=== PATIENT | male | born 1935 | race Caucasian/White ===

== ENCOUNTER 2018-12-26 12:00 | Inpatient (IN) | payer OTHER ==
[2018-12-26] MEDS ORDERED: SODIUM CHLORIDE 0.9% (FLUSH) 10 ML SYG IV PRN (12:17)
[2018-12-26] MEDS ORDERED: ONDANSETRON INJ 4 MG/2 ML VIAL IV PRN (12:17)
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
[2018-12-26] MEDS ORDERED: KETOROLAC TROMETHAMINE INJ 30 MG/ML VIAL IV ONE (12:19)
[2018-12-26] MEDS ORDERED: HYDROmorphone HCL INJ 2 MG/ML VIAL IV ONE (12:19)
[2018-12-26] MEDS ORDERED: IV SET AND CAP CHANGE INJ INJ SCH (12:30)
[2018-12-26] MEDS: LACTATED RINGERS 1,000 ML IVS PRN ×2 (13:17→20:05)
--- NOTE | 2018-12-26 14:45 | US ---
EXAM DESCRIPTION: Abdomen,Complete: Ultrasound. CLINICAL HISTORY: Acute onset RUQ pain COMPARISON: None Available. TECHNIQUE: Transabdominal scannin-dimensional and Doppler modes. FINDINGS: Gallbladder: Normal. Multiple gallstones and sludge. No wall thickening (2.4 mm) or surrounding fluid. Nontender with transducer pressure. Common bile duct: 4 mm, normal caliber. Liver: Normal echoes with long axis of the right lobe 16 cm. No intrahepatic duct dilation. Normal vascular flow. Pancreas: Not well visualized. Duct not seen.. Abdominal aorta: Normal caliber from the proximal segment to the distal bifurcation. IVC: visualized; normal caliber. Spleen normal echogenicity; long axis measurement is 7.8 cm. Right kidney: Normal cortical echogenicity with lobulated capsule and thickness 7.1 mm. 10.2 cm Long axis. Mild hydronephrosis. No perinephric fluid. Left kidney: 12.0 cm long axis. Normal cortical echogenicity with thickness 11 mm. Lobulated capsule. Mild hydronephrosis. No perinephric fluid. IMPRESSION: 1. Gallbladder stones and sludge with gallbladder slightly contracted. No wall thickening or fluid. Nontender. Normal caliber of the common bile duct. 2. Normal ultrasound of the liver and spleen. Pancreas not well seen. No ascites. Normal caliber of the abdominal aorta and IVC. 3. Bilateral kidneys normal size with cortical thinning more on the right. Bilateral lobulated capsule. Mild hydronephrosis bilaterally. Electronically signed by: Levi Khan MD 12/26/2018 2:42 PM [facility]
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
[2018-12-27] MEDS: LACTATED RINGERS 1,000 ML IVS PRN ×2 (05:48→17:22)
[2018-12-27] MEDS ORDERED: fentaNYL CITRATE INJ 50 MCG/ML AMP ONE (09:30)
[2018-12-27] MEDS ORDERED: ROCURONIUM BROMIDE 10 MG/ML VIAL ONE (09:30)
[2018-12-27] MEDS ORDERED: SUGAMMADEX SODIUM 200 MG/2 ML VIAL IV ONE (09:31)
[2018-12-27] MEDS ORDERED: BUPIVACAINE 0.5% W/EPI 30 ML VIAL INJ ONE (09:38)
[2018-12-27] MEDS ORDERED: HEPARIN SODIUM (PORCINE) 10,000 UNITS/ML VIAL ONE (09:38)
[2018-12-27] MEDS ORDERED: BUPIVACAINE 0.25% W/EPI 50 ML VIAL INJ ONE (09:39)
--- NOTE | 2018-12-27 10:30 | RAD ---
EXAM DESCRIPTION: Chest,2 Views CLINICAL HISTORY: 83 years Male, pre op COMPARISON: None available. TECHNIQUE: PA and lateral radiographs of the chest were obtained. FINDINGS: Trachea is midline. The cardiac silhouette is mildly prominent in size. The pulmonary vasculature is within normal limits. The lungs demonstrate low volumes most likely secondary to poor inspiratory effort.No evidence of pleural effusions.No evidence of pneumothorax. IMPRESSION: Mildly prominent cardiac silhouette. Low lung volumes due to poor inspiratory effort. Electronically signed by: Merissa Vázquez MD 12/27/2018 10:27 AM [facility]
[2018-12-27] MEDS ORDERED: ceFAZolin SODIUM 1 GM VIAL IVPB ONE (11:00)
[2018-12-27] MEDS ORDERED: ELECTROLYTE-A 1,000 ML IVS ONE (11:25)
[2018-12-27] MEDS ORDERED: GLUCAGON INJ 1 MG VIAL ONE (11:37)
[2018-12-27] MEDS ORDERED: HYDROmorphone HCL INJ 2 MG/ML VIAL ONE (12:00)
--- NOTE | 2018-12-27 12:33 | RAD ---
EXAM DESCRIPTION: Fluoroscopy Up to 1Hr CLINICAL HISTORY: IOC IMPRESSION: 3 Fluoroscopic image/s were acquired by the referring physician intraoperatively. Normal filling of the biliary tree is seen. No complicating process is demonstrated. Please refer to surgical report for specific details. Fluoroscopy time less than 1 minute. Electronically signed by: Jamie Jefferson MD 12/27/2018 12:30 PM [facility]
[2018-12-27] MEDS ORDERED: HYDROcodone 5MG/APAP 325MG 1 EA TAB PO PRN (12:53)
[2018-12-27] MEDS ORDERED: HYDROmorphone HCL INJ 2 MG/ML VIAL IV PRN (12:53)
--- NOTE | 2018-12-27 13:29 | OP ---
DATE OF PROCEDURE: 12/27/18 PREOPERATIVE DIAGNOSIS: 1. Cholecystitis. 2. Cholelithiasis. POSTOPERATIVE DIAGNOSIS: 1. Acute gangrenous cholecystitis. 2. Cholelithiasis. 3. Possible choledocholithiasis. PROCEDURE: 1. Laparoscopic cholecystectomy with intraoperative cholangiography using fluoroscopy. SURGEON: Khari Fulton MD. LEATHER SEASONER: None. ANESTHESIA: Local infiltration of 0.25% Marcaine with epinephrine and general endotracheal anesthesia. INDICATION: The patient is an 83-year-old male who developed severe abdominal pain Sunday night after eating a heavy meal of chicken fried steak. He presented to the Emergency Room in [place] and was told he had probably gallbladder problems. He was given a shot for pain. He saw Dr. Craig yesterday who felt he had severe right upper quadrant pain consistent with cholecystitis. He was admitted to the hospitalist service. Ultrasound revealed gallstones and a thickened gallbladder wall. He had a normal white count. His liver functions show bilirubin mildly elevated. He was seen yesterday, made NPO and this morning, he was brought to the Surgical Suite after the risks, benefits and alternatives to the procedure were discussed and accepted. FINDINGS: The gallbladder wall was gangrenous, thickened and there was no perforation noted. Intraoperative cholangiography revealed a bile duct with no filling defects that were obvious or strictures and the upper biliary tree was normal, but there was no flow initially of bile into the duodenum. After glucagon, a small amount of bile got through. At this point, no other pathology was identified. DESCRIPTION OF PROCEDURE: After adequate general endotracheal anesthesia was obtained, the patient was prepped and draped in the usual sterile manner in the supine position. He was given 2 grams of Ancef. At this point, the supraumbilical area was infiltrated with local anesthesia. A vertical incision was made. Dissection was carried down through subcutaneous tissue to the midline fascia. Traction sutures were placed on either side of the midline. A small incision was made in the midline fascia and the peritoneum was opened bluntly. Rosaura trocar was introduced under direct vision into the abdominal cavity and fixed in place with the 20 mL balloon. CO2 was then insufflated until a pressure of 12 mmHg was reached and the abdomen was tympanitic in all four quadrants. When this was done, the laparoscope was introduced. The abdomen was inspected. The gallbladder was identified after some very loose adhesions were removed. It was noted to be distended and gangrenous. At this point, a Storz needle was introduced and 60 mL of dark bile was obtained. The gallbladder was then grasped, retracted superiorly and laterally. The neck of the gallbladder was retracted laterally. The triangle of Calot was then explored with the cystic duct and cystic artery identified. The cystic duct was hemoclipped once proximally. The cystic artery was hemoclipped twice proximally and once distally. A small incision was made in the cystic duct. The cholangiogram catheter was introduced through a separate stab wound in the right upper quadrant, introduced into the cystic duct and at first, it leaked significantly. The clip was then repositioned. Cholangiograms were attempted. There was still leakage, but we saw everything except flow into the duodenum, so it was clipped again and cholangiography revealed a small amount of flow into the duodenum with all otherwise no significant defects. The cystic duct catheter was removed. The cystic duct was hemoclipped three times distally and divided between the hemoclips. The cystic artery was divided. The gallbladder was then dissected free from the gallbladder bed with some oozing obtained. There was another vessel identified of the lower aspect and this was clipped and divided. There was some leakage of the gallbladder due to the gangrenous areas, so it was placed in an EndoCatch bag. Two stones were noted to be loose. These were removed under direct vision. When this was done, the subhepatic space and subphrenic space were irrigated copiously with saline. The effluent was noted to be clear. The gallbladder was placed in an EndoCatch bag and removed from the supraumbilical port site in the usual manner under direct vision. Again, the subphrenic space and subhepatic space were irrigated copiously with saline. There was no active bleeding identified. The reid hepatis revealed no bleeding or bile leak. At this point, a 15-T[place] MARY KATE drain was placed in the subhepatic space near the cystic duct remnant through the lateral port site. It was sutured in place with 3-0 Nylon ligature. The remaining upper ports were removed. Good hemostasis was noted. At this point, the CO2, the laparoscope and the supraumbilical port were removed. The supraumbilical port site fascia was approximated with a single [id number] suture of 0 Vicryl. Subcutaneous tissue was irrigated with saline. Skin edges were approximated with 4-0 Vicryl subcuticular sutures, benzoin and Steri-Strips. The MARY KATE drain was cut to appropriate length and placed to suction on a closed suction grenade. Sterile dressings were applied. The patient was awakened and taken to the Recovery Room in good and stable condition. Estimated blood loss was approximately 150 mL. All sponge, needle and instrument counts were correct. #[id number] MTDD
[2018-12-27] MEDS: PANTOPRAZOLE SODIUM IV 40 MG VIAL IV SCH (13:45)
--- NOTE | 2018-12-27 14:04 | PN ---
DATE: 12/27/18 SUBJECTIVE: The patient feels pretty well today, with very minimal right upper quadrant pain. He states he has not had a bowel movement that he remembers since admission. He is currently doing very well without complaints. He endorses that they plan on doing surgery to remove his gallbladder today. OBJECTIVE: VITAL SIGNS: Temperature 98.8. Pulse 76. Blood pressure 148/74. Respiratory rate 16. Oxygen saturation 90% on room air. GENERAL: In good spirits, conversing normally. CHEST: Lungs clear to auscultation, no wheezes or crackles. HEART: Normal rate and rhythm, no murmurs. ABDOMEN: Minimal right upper quadrant pain, no rebound or negative Gonzalez's, no ascites. EXTREMITIES: Mild pitting edema to bilateral lower extremities, no focal deficits. 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 LABORATORY: White blood cell count 6.1, hemoglobin 13.7, hematocrit 41.0. Sodium 141, potassium 3.8, chloride 109, carbon dioxide 25. BUN 18, creatinine 0.73. Total bilirubin elevated at 1.7. Liver enzymes within normal limits. Serum total protein slightly low at 5.7. Amylase 30, lipase 22. IMAGING: Preoperative chest x-ray, 12/27/18, shows mildly prominent cardiac silhouette, low lung volumes due to poor expiratory effort likely. ASSESSMENT: 1. Right upper quadrant pain, likely biliary colic with surgical consultation by Dr. Fulton in process to further rule out pancreatitis versus cholelithiasis and possible appendicitis, status post cholecystectomy with evidence of gangrenous gallbladder according to Dr. Fulton. 2. History of deep venous thrombosis with pulmonary embolus with IVC filter placement and on Xarelto. PLAN: The patient is postoperative 0 from a cholecystectomy in which Dr. Fulton endorses he found a gangrenous gallbladder. Dr. Fulton also endorsed that the bile duct did not drain appropriately, but there was no real sign of choledocholithiasis. Due to that, he left a drain in place and will reassess his labs and clinical status in the morning. If bilirubin goes up or labs are concerning, he will likely need an ERCP. If the patient looks well tomorrow, we can remove the drain and continue his Xarelto per Dr. Fulton. He will likely need an MRCP on an outpatient basis given the recent findings of the poorly draining common bile duct. We will give him a dose of Lovenox tomorrow per Dr. Fulton. He can continue his Xarelto tomorrow if we can pull the drain and be able to send him home. Continuing all medications that we have been doing thus far, we will monitor him postoperatively, and work alongside Dr. Fulton and his team. #[id number] MTDD
[2018-12-27] MEDS: ceFAZolin SODIUM 2 GRAMS PREMI 2 GM in PREMIX BAG 1 BAG IVPB SCH ×2 (16:22→23:46)
[2018-12-27] MEDS ORDERED: ceFAZolin SODIUM 2 GRAMS PREMI 50 ML IVPB ONE ×2 (17:04→22:53)
[2018-12-28] MEDS: LACTATED RINGERS 1,000 ML IVS PRN (04:59)
[2018-12-28] MEDS ORDERED: ceFAZolin SODIUM 2 GRAMS PREMI 50 ML IVPB ONE (07:07)
[2018-12-28] MEDS: ceFAZolin SODIUM 2 GRAMS PREMI 2 GM in PREMIX BAG 1 BAG IVPB SCH (08:32)
[2018-12-28] MEDS ORDERED: ENOXAPARIN SODIUM 40 MG/0.4 ML SYG SUBCU SCH (09:00)
[2018-12-28] MEDS ORDERED: DEXAMETHASONE INJ 10 MG/ML VIAL IV ONE (10:00)
[2018-12-28] MEDS ORDERED: raNITIdine HCL INJ 25 MG/ML VIAL IV ONE (10:00)
[2018-12-28] MEDS ORDERED: ceFAZolin SODIUM 1 GM VIAL IVPB ONE (10:00)
[2018-12-28] MEDS ORDERED: LIDOCAINE 1% 10 ML VIAL INJ ONE (10:00)
[2018-12-28] MEDS ORDERED: PROPOFOL 200 MG/20 ML VIAL IV ONE (10:00)
[2018-12-28] MEDS ORDERED: METOCLOPRAMIDE HCL INJ 10 MG/2 ML VIAL IV ONE (10:00)
[2018-12-28] MEDS: PANTOPRAZOLE SODIUM IV 40 MG VIAL IV SCH (12:38)
[2018-12-28 13:50] VITALS: BP 159/72; TEMP 98.4; O2SAT 95
--- NOTE | 2018-12-28 17:43 | DS ---
ADMISSION DIAGNOSIS: 1. Right upper quadrant pain, likely biliary colic with surgical consultation by Dr. Fulton in process to further rule out pancreatitis versus cholelithiasis and possible appendicitis. 2. History of DVT with pulmonary embolus with IVC filter placement and on Xarelto. HISTORY OF PRESENT ILLNESS: Mr. Constantino is an 83 year-old male patient that was seen last night in the Emergency Room at [facility] in [place] for a sudden onset of right upper quadrant pain around midnight. He notes that he had eaten a large chicken plaza dinner around 8 o'clock and started having severe sharp pain around his right upper quadrant that he was describing 10/10 on a pain scale. He was given pain medicine in the Emergency Room and told that he needed to have an ultrasound or CT done to further rule out the possibility of cholelithiasis and cholecystitis. However, he requested to be discharged so he could followup with Dr. Craig. Earlier today he was seen in Dr. Craig's office for followup from the Emergency Room. He was still having abdominal pain in the right upper quadrant. Dr. Craig then requested after talking to Dr. Fulton, that the the patient be admitted for questionable biliary colic versus cholelithiasis versus cholecystitis and further treatment and evaluation. He was directly admitted in stable condition. HOSPITAL COURSE: The patient was initially admitted in light of sudden onset of right upper quadrant pain with a steadily elevated total bilirubin level. Upon admission, the patient had an abdominal ultrasound which showed stones found in the gallbladder, along with a thickened gallbladder wall significant for likely cholecystitis. He was taken to the Operating Room on admission day 1, and found to have a gangrenous gallbladder. Per Dr. Fulton, the procedure went well and a drain was placed. Per Dr. Fulton, he did have a filling defect found in the common bile duct, thus a drain was left in place and labs were followed. On postoperative day 1, the patient had a relative decrease in total bilirubin, and a decrease in pain, and the drain was removed. Dr. Fulton agreed that he was stable for discharge with a close followup to schedule an MRCP to evaluate the draining of the common bile duct. VITAL SIGNS: Temperature 98.4, heart rate 82, blood pressure 159/72, respiratory rate 16, oxygen saturation 95 on room air. LABORATORY: White blood cell count normal throughout, hemoglobin stable in the high 13s, platelet count normal throughout the admission. Chemistry panel within normal limits, glucose slightly elevated at 137. Total bilirubin at 1.7 preoperative, 1.5 postoperative day 1. IMAGING: Abdominal ultrasound from 12/26/18 shows stones in the gallbladder, with thickened gallbladder wall. Chest x-ray 12/27/18 relatively normal with an IVC filter seen in the right lung damon. DISCHARGE DIAGNOSES: 1. Status post cholecystectomy in light of cholelithiasis and cholecystitis. 2. History of deep venous thrombosis with pulmonary embolus equal IVC filter placement, and subsequently on Xarelto. 3. Likely chronic hypertension, currently undiagnosed. 4. Obesity. 5. History of right eye implant. PLAN: The patient did very well postoperatively, drain was removed early on discharge day. He progressed well throughout the day, requiring minimal pain medications. He will be discharged home, with his , who has already picked up his pain medications from the Pharmacy. He will have a followup appointment with Dr. Fulton on 01/06/19 at 3:30 PM. This was discussed with the family and they understand. The patient was told about the likelihood of chronic hypertension being undiagnosed. It was also discussed that his hypertension in the hospital could also have been due to acute pain and acute infection in the gallbladder, combined with an operation. #[id number] MTDD
== END 2018-12-28 15:29 | disposition home or self-care (01) | DRG 419 ==
LOC: MS 12:00
PROVIDERS: ADMIT Nurse Practitioner Family; ATTEND Nurse Practitioner Family
PROC: BF131ZZ Fluoroscopy of Gallbladder and Bile Ducts using Low Osmolar Contrast (ICD-10-PCS; 2018-12-27)
PROC: 0FT44ZZ Resection of Gallbladder, Percutaneous Endoscopic Approach (ICD-10-PCS; principal; 2018-12-27 10:30)
DX: K80.00 Calculus of gallbladder with acute cholecystitis without obstruction (principal); R03.0 Elevated blood-pressure reading, without diagnosis of hypertension; E66.9 Obesity, unspecified; Z79.82 Long term (current) use of aspirin; Z86.711 Personal history of pulmonary embolism; Z86.718 Personal history of other venous thrombosis and embolism; Z95.828 Presence of other vascular implants and grafts; Z79.02 Long term (current) use of antithrombotics/antiplatelets; Z88.2 Allergy status to sulfonamides; Z68.28 Body mass index [BMI] 28.0-28.9, adult

== ENCOUNTER → 2020-08-12 | Outpatient (CLI) | payer OTHER ==
--- NOTE | 2020-08-13 08:30 | RAD ---
EXAM DESCRIPTION: Hip,Right 2 Views CLINICAL HISTORY: 85 years, Male, FRACTURE OF NECK OF FEMUR COMPARISON: None TECHNIQUE: AP and frog leg lateral views of the hip FINDINGS: 2 views of the right hip reveal hairline lucency of the cortex of the lateral aspect of the right femoral head and small lucency along the line of the previous physis on the frog-leg lateral view. This could be normal variant but nondisplaced cortical avulsion cannot be excluded. This could be further evaluated with CT or MRI. Similar appearance on previous study. No periosteal new bone formation to suggest healing fracture. Mild joint space narrowing. Degenerative narrowing of the right SI joint and pubic symphysis. The bones of the right hemipelvis appear intact. No fracture through the neck of the proximal femur. Degenerative changes in the lower lumbar spine. IMPRESSION: Question nondisplaced cortical avulsion of the superolateral right femoral head neck junction versus anatomic variant. See above. No significant change since previous study. Electronically signed by: Markus Reeves MD 08/13/2020 8:28 AM CDT
== END ==
LOC: RAD 10:15
PROVIDERS: ATTEND Orthopaedic Surgery
DX: S72.001A Fracture of unspecified part of neck of right femur, initial encounter for closed fracture (principal)